=== PATIENT | male | born 2000 | race Caucasian/White ===

== ENCOUNTER 2021-06-03 11:52 | Emergency (ER) | payer OTHER, SELFPAY ==
[2021-06-03 12:19] VITALS: BP 154/71; PULSE 86; RESP 21; TEMP 37.7; O2SAT 99; BMI 26.6
[2021-06-03 12:24] VITALS: BP 154/71; PULSE 86; RESP 16; TEMP 37.7
[2021-06-03 12:24] LABS: UTC Strep Screen (Rapid) Positive (Negative)
--- NOTE | 2021-06-03 12:39 | HMH.EDUTC ---
[facility] [place] Clinical Impression: Strep throat Disposition: Home, Self-Care Condition on Discharge: Good Instructions: Strep Throat, DI for Strep Throat Additional Instructions: Drink plenty of fluids. Take tylenol or ibuprofen for pain or fever. Take the medications as directed. Follow up with your regular doctor. GO TO THE ER FOR ANY WORSENING SYMPTOMS Throw your tooth brush away and get a new one. The zofran is for nausea. Sometimes the medications can make you nauseated and you don't need to vomit them up. Get this if you need it. Prescriptions: Amoxicillin/Potassium Clav [Augmentin 875-125 Tablet] 1 tab PO Q12H 10 Days #20 tab Transmission Status: Received by [id number] predniSONE [Deltasone 10mg tablet] 10 mg PO BID 3 Days #6 tab [facility]: [facility] Ondansetron [Zofran 4mg ODT] 4 mg PO DAILYP PRN #12 tab PRN Reason: Nausea Transmission Status: [facility] Referrals: Jalil Ledesma MD [Primary Care Provider] - Forms: Work/School Release Time of Disposition: 12:47 Medical Decision Making - Medical Records Medical records reviewed: No: I reviewed the patient's medical records. - Kiran Inquiry Pt receiving controlled substance: No Vital Signs: 06/03/21 12:19 06/03/21 12:24 Temperature 99.8 F H 99.8 F H Temperature Source Temporal Artery Scan Pulse Rate 86 Pulse Rate [Left] 86 Respiratory Rate 21 16 Blood Pressure 154/71 H Blood Pressure [Right Arm] 154/71 H Blood Pressure Mean [Right Arm] 98 02 Sat by Pulse Oximetry 99 - Lab Data Lab results reviewed: Yes: I reviewed the patient's lab results. Lab Results 06/03/21 12:22: Strep [facility]n Rapid [facility] Positive A [facility] [place] - General Stated complaint: sinus pain Time Seen by Provider: 06/03/21 12:39 Mode of Arrival: Ambulatory Source of Information: Patient Limitations: No Limitations Description of Symptoms (Recalled from Triage Doc. by RN): PT C/O L EAR AND FACE PAIN. PT ALSO STATES THE SKIN ON HIS GUMS HAVE BEEN PEELING. HEENT Symptoms (Recalled from RN notes): Yes (L EAR AND FACE PAIN) Resp Symptoms (Recalled from RN notes): No Skin Symptoms (Recalled from RN notes): No MS Symptoms (Recalled from RN notes): No Functional Status (Recalled from RN notes): NA - History of Present Illness Provider Complaint: He states that for the past 6 days he has had a sore throat, he has felt bad and he has ran a fever. He was tested for covid-19 3 days ago and it was negative. He denies a significant cough. He has had some nausea, but no vomiting, abdominal pain, or diarrhea. - Related Data Previous Rx's Medication Instructions Recorded Amoxicillin/Potassium Clav 1 tab PO Q12H 10 Days #20 tab 06/03/21 [Augmentin 875-125 Tablet] Ondansetron [Zofran 4mg ODT] 4 mg PO DAILYP PRN #12 tab 06/03/21 predniSONE [Deltasone 10mg tablet] 10 mg PO BID 3 Days #6 tab 06/03/21 Allergies Allergy/AdvReac Type Severity Reaction Status Date / Time No Known Allergies Allergy Verified 06/03/21 12:22 - Worker's Comp Is this a Worker's Comp case?: No [facility] History - Hepatitis A Screen Drug use history?: No High risk sexual behaviors?: No History of sexually transmitted infection?: No Currently employed?: No Childcare worker?: No Do you have indoor plumbing?: Yes Do you have electricity?: Yes Attestation statement:: This patient has been screened for Hepatitis A risk factors. I have reviewed the patient's past medical history: Yes ROS Obtained: Yes All systems reviewed & no additional complaints - Constitutional Constitutional: Reports fever(s), Reports poor appetite, Reports malaise - Eyes Eyes: Denies eye discharge - ENT Ears, Nose, Mouth, and Throat: Reports as per HPI - Cardiovascular Cardiovascular: Denies chest pain - Respiratory Respiratory: Denies chest congestion, Reports cough, Denies dyspnea, Denies stri
== END 2021-06-03 12:52 | disposition home or self-care (01) ==
PROVIDERS: Emergency Provider Nurse Practitioner Family; PCP Specialist
DX: J02.0 Streptococcal pharyngitis (principal)
CPT/HCPCS: 87880; 99202; G0463

== ENCOUNTER 2021-08-29 11:43 | Emergency (ER) | payer OTHER, SELFPAY ==
[2021-08-29 13:00] VITALS: BP 133/83; PULSE 76; RESP 20; TEMP 36.8; O2SAT 99; BMI 25.8
[2021-08-29 13:24] LABS: UTC Influenza A Antigen Negative (Negative)
[2021-08-29 13:25] LABS: UTC Influenza B Antigen Negative (Negative)
[2021-08-29 13:25] LABS: UTC Strep Screen (Rapid) Positive (Negative)
--- NOTE | 2021-08-29 13:46 | HMH.EDUTC ---
[facility] [place] Impression: Strep throat Disposition: Home, Self-Care Condition on Discharge: Good Instructions: Strep Throat, DI for Strep Throat Additional Instructions: *Monitor Temp, Over the counter Motrin or Tylenol as directed/as needed Tylenol every 4 hours and Motrin every 6 hours (as long as your family doctor has told you that you can take it) for fever or pain. and straight to ER if unable to lower temp less than 101.0 after medication given *Warm salt water gargles may help to soothe the throat *Throat Lozenges *Warm fluids like tea with honey may help to soothe the throat *Sleep elevated *Humidifier/Vaporizer *If you did not take Penicillin shot or was unable to, start taking antibiotic immediately and make sure that you take it for the FULL length of time although you should start to feel better in 24-48 hours *change toothbrush and toothpaste 24-48 hours after starting to take antibiotics so you do not reinfect yourself Monitor Temp. Tylenol and/or Ibuprofen as needed. ER if fever is no less than 101 despite alternating Tylenol and Ibuprofen * Encourage fluids, water, Gatorade, powerade, pedialyte if infant/toddler/or child *Cold fluids, popsicles and ice cream may feel good on his throat Follow up IMMEDIATELY for new or worsening symptoms or no Noticeable improvement over the next 48-72 hours. 911 for difficulty breathing or swallowing Prescriptions: Amoxicillin [Amoxicillin 875MG Tab] 875 mg PO Q12H #20 tab Transmission Status: Pending to [facility] Referrals: Jalil Ledesma MD [Primary Care Provider] - As needed Forms: Work/School Release Time of Disposition: 13:55 Medical Decision Making - Kiran Inquiry Pt receiving controlled substance: No Kiran was queried for this patient: No Vital Signs: 08/29/21 13:00 Temperature 98.3 F Temperature Source Oral Pulse Rate [Right Brachial] 76 Respiratory Rate 20 Blood Pressure [Right Arm] 133/83 Blood Pressure Mean [Right Arm] 99 Blood Pressure Source [Right Arm] Automatic Cuff Blood Pressure Position [Right Arm] Sitting 02 Sat by Pulse Oximetry 99 Oxygen Delivery Method Room Air - Lab Data Lab results reviewed: Yes: I reviewed the patient's lab results. Lab Results 08/29/21 13:19: Strep Scn Rapid Clinic Positive A 08/29/21 13:20: Influenza Type A Ag Negative, Influenza Type B Ag Negative Orders (Tests/Meds): ORDERS Category Date Time Status Covid-19 Nasal PCR ([facility]) Routine Lab 08/29/21 13:14 Received [facility] [place] - General Stated complaint: sore throat, body aches, congestion Time Seen by Provider: 08/29/21 13:46 Mode of Arrival: Ambulatory Source of Information: Patient Limitations: No Limitations Description of Symptoms (Recalled from Triage Doc. by RN): PATIENT C/O SORE THROAT, CONGESTION, BODY ACHES AND FATIGUE SINCE SATURDAY HEENT Symptoms (Recalled from RN notes): Yes Resp Symptoms (Recalled from RN notes): No Skin Symptoms (Recalled from RN notes): No MS Symptoms (Recalled from RN notes): No Functional Status (Recalled from RN notes): WNL - History of Present Illness Provider Complaint: Father states that patient not felt well for several days States that he has been having body aches, sore throat and fatigue States that he feels like he did when he had strep throat a few months ago but was recently around somoeone that tested positive for COVID - Related Data Previous Rx's Medication Instructions Recorded Amoxicillin [Amoxicillin 875MG 875 mg PO Q12H #20 tab 08/29/21 Tab] Allergies Allergy/AdvReac Type Severity Reaction Status Date / Time No Known Allergies Allergy Verified 06/03/21 12:22 - Worker's Comp Is this a Worker's Comp case?: No [facility] History - Hepatitis A Screen Drug use history?: No High risk sexual behaviors?: No History of sexually transmitted infection?: No Currently employed?: No Childcare worker?: No Do you have indoor plumbing?: Yes
[2021-08-29 14:02] VITALS: BP 133/83; PULSE 76; RESP 20; TEMP 36.8; O2SAT 99
--- NOTE | 2021-08-31 18:43 | PC.NURSE ---
informed patient that he is positive
== END 2021-08-29 14:05 | disposition home or self-care (01) ==
PROVIDERS: Emergency Provider Nurse Practitioner; PCP Specialist
DX: J02.0 Streptococcal pharyngitis (principal)
CPT/HCPCS: 87804; 87880; 99203; C9803; G0463; U0003; U0005